=== PATIENT | female | born 1975 | race Caucasian/White ===

== ENCOUNTER 2023-01-21 09:59 | Outpatient (OUT) | payer BC, SELFPAY ==
--- NOTE | 2023-01-21 10:01 | VEIN_ITS ---
The [address] [address] Patient Name: EMIL DAVILA MRN: [id number] date: 1975 Sex: F Assigned Patient Location: Current Patient Location: Accession/Order Number: [id number] Exam Date: 01/21/2023 10:05 Report Date: 01/21/2023 11:11 At the request of: MILLY MONDRAGON Procedure: VC Endovenous Ablation 1VeinRT EXAMINATION: VC Endovenous Ablation 1VeinRT HISTORY: I83.813 pain due to varicose veins of bilateral legs The risks and benefits of the procedure had been previously discussed, and were rediscussed at length. Informed written consent was obtained. Vikram Ferrell RN; Diane Fulton RN; Denisse Camejo RDMS, RVT assisted. Time out procedure was performed. The right lower extremity was prepared and draped in the usual sterile fashion to allow knee flexion in the sterile field. Duplex ultrasound probe was draped in a sterile cover, sterile transmission gel was used. Venous mapping was performed with the areas of dilation and large tributaries marked. The total length was 25 cm from the entry distal thigh to 3 cm below the saphenofemoral junction. The diameter of the greater saphenous vein ranged from 8 mm. A 30 gauge needle and 1% buffered lidocaine was used to anesthetize the entry site. A 4 mm incision was made with a scalpel and the saphenous vein was entered percutaneously under direct ultrasound guidance with a micropuncture set, a single stick was successful in gaining access. A micro-guide wire was inserted and the needle removed. A micro-set including a dilator was inserted over the microwire and the needle and dilator were removed. A guide wire was inserted through the micro-set and guided through the saphenous vein to the saphenofemoral junction. The dilator was removed and an introducer sheath was inserted over the wire until the end of the sheath entered the saphenofemoral junction. The dilator and wire were removed and the 600 micron fiber was introduced and placed and positioned so that it extended beyond the sheath and was 3 cm distal to the saphenofemoral femoral junction. Final position of the fiber was determined by ultrasound guidance and duplex imaging. Tumescent anesthetic was delivered by ultrasound guidance. 100 cc of fluid was delivered along the entire course of the saphenous vein. The solution consisted of 1000 cc of normal saline with 40 mL of 1% lidocaine and 20 mL of sodium bicarbonate. A final positioning check was made. The energy source was turned on by means of the foot pedal and the fiber and sheath were withdrawn. The total number of Joules delivered was 1440. The laser was active for 180seconds under continuous pulse, average laser use of 8 J. Laser start time 11:00 AM, 01/21/2023. Laser stop time 11:03 AM, 01/21/2023. A duplex ultrasound revealed compressibility and flow at the saphenofemoral junction immediately after the procedure. Hemostasis at the access site was achieved. The skin incision of the saphenous vein was closed with a 4 x 4. A compression stocking was applied. Postop instructions were given. A follow up appointment was recommended and scheduled. The patient tolerated the procedure well. Electronically authenticated by: MARK TYSON Date: 01/21/2023 11:11
[2023-01-21] MEDS: LIDOCAINE HCL 10 ML, SODIUM BICARBONATE 1 MEQ INJ (10:59)
[2023-01-21] MEDS: 0.9 % SODIUM CHLORIDE 500 ML, LIDOCAINE HCL 20 ML, SODIUM BICARBONATE 10 MEQ INJ (11:00)
== END 2023-01-21 10:00 | disposition home or self-care (01) ==
LOC: VC 09:59
PROVIDERS: PCP Radiology Diagnostic Radiology; Visit Provider Radiology Diagnostic Radiology
DX: I83.813 Varicose veins of bilateral lower extremities with pain (principal)
CPT/HCPCS: 36478

== ENCOUNTER 2023-01-25 14:33 | Outpatient (OUT) | payer BC, SELFPAY ==
--- NOTE | 2023-01-25 14:34 | VEIN_ITS ---
Patient: EMIL DAVILA Exam Date: 01/25/2023 : 1975 Gender:F Ordering : DR ADONIS SOLITARIO M.D. Admission #: [id number] Family : Order #: [id number] CLICK HERE TO VIEW EXAM RADIOLOGY REPORT PROCEDURE: VC FACILITY EST LMTD VEIN CENTER - OFFICE VISIT FOLLOW UP COMPARISON: None. PROGRESS NOTES: The patient reports mild pain of the right leg following intravenous laser ablation patient did not require oral analgesics. The patient has worn her compression stocking. The patient has followed our recommendations to walk 20-30 minutes once or twice per day since the procedure. Physical exam demonstrates some mild bruising along the distal medial thigh measuring 2 cm in diameter likely related to tumescence injection. Thrombosed right great saphenous vein can be partially palpated. No areas of erythema or warmth to suggest cellulitis or thrombophlebitis. No active ulceration Review of the ultrasound performed the same day demonstrates occlusive thrombus extending throughout the treated right great saphenous vein with heat induced thrombus 2.0 cm from the saphenofemoral junction. The patient expressed a desire to proceed with treatment of bilateral reticular and spider veins. VEIN/ Facility EST LMTD IMPRESSION: 1. Successful ablation of the right great saphenous vein 2. Persistent bilateral reticular and spider veins. PLAN: Injection sclerotherapy Nurse notes, history and physical were reviewed and confirmed, see attached forms. The nurse was present throughout the physical exam and consultation Dictated by: Adonis Solitario MD on 01/25/2023 at 16:00 Approved by: Adonis Solitario MD on 01/25/2023 at 16:02
--- NOTE | 2023-01-25 14:34 | VEIN_ITS ---
Patient: EMIL DAVILA Exam Date: 01/25/2023 : 1975 Gender:F Ordering : DR ADONIS SOLITARIO M.D. Admission #: [id number] Family : Order #: [id number] CLICK HERE TO VIEW EXAM RADIOLOGY REPORT PROCEDURE: VC EXT VENOUS RT LMTD COMPARISON: None. INDICATIONS: I80.01 Phlebitis of superficial veins of rt lower extremity TECHNIQUE: Lower extremity lucas scale and Duplex Doppler evaluation of the deep venous system from the inguinal ligament through the calf veins. FINDINGS: REGION: Right lower extremity. THROMBI: Negative for DVT. Heat induced thrombus visualized 2.0 cm from the SFJ. The heat induced thrombus extends from groin to distal thigh. COMPRESSIBILITY: Non-compressible segments. FLOW: Areas of no flow. CONCLUSION: Post ablation occlusion of the right great saphenous vein with heat induced thrombus 2 cm from the saphenofemoral junction Dictated by: Adonis Solitario MD on 01/25/2023 at 14:58 Approved by: Adonis Solitario MD on 01/25/2023 at 14:58
== END 2023-01-25 14:34 | disposition home or self-care (01) ==
LOC: VC 14:33
PROVIDERS: PCP Radiology Diagnostic Radiology; Visit Provider Radiology Diagnostic Radiology
DX: I80.01 Phlebitis and thrombophlebitis of superficial vessels of right lower extremity (principal)
CPT/HCPCS: 93971; G0463

== ENCOUNTER 2023-01-28 11:03 | Outpatient (OUT) | payer BC, SELFPAY ==
--- NOTE | 2023-01-28 | VEIN_ITS ---
[address] [address] Patient Name: EMIL DAVILA MRN: [id number] date: 1975 Sex: F Assigned Patient Location: Current Patient Location: Accession/Order Number: [id number] Exam Date: 01/28/2023 11:00 Report Date: 01/28/2023 13:33 At the request of: MILLY MONDRAGON Procedure: VC INJ Sclerosing SOLMULT Vein EXAMINATION: VC INJ Sclerosing SOLMULT Vein HISTORY: Pain due to varicose veins of bilateral legs I83.813 COMPARISON: No relevant comparison available. TECHNIQUE: The risks and benefits of the procedure were explained at length to the patient and informed written consent was obtained. Vikram Ferrell was present and assisted. The procedure was performed under sterile technique. The patient's leg was wrapped with Coban and postprocedural verbal and written instructions provided. SCLEROSANT: 4 cc, 0.5% polidocanol VEIN(S) INJECTED: 23 veins in the left leg VISUALIZATION: Ultrasound was not used to visualize the sclerosant ANESTHESIA: Supercooled air COMPLICATIONS: None VEIN/VC INJ Sclerosing SOLMULT Vein IMPRESSION: Technically successful sclerotherapy as described Electronically authenticated by: MILLY MONDRAGON Date: 01/28/2023 13:33
== END 2023-01-28 11:04 | disposition home or self-care (01) ==
LOC: VC 11:03
PROVIDERS: PCP Radiology Diagnostic Radiology; Visit Provider Radiology Diagnostic Radiology
DX: I83.813 Varicose veins of bilateral lower extremities with pain (principal)
CPT/HCPCS: 36471

== ENCOUNTER 2023-02-03 09:09 | Outpatient (OUT) | payer BC, SELFPAY ==
--- NOTE | 2023-02-03 | VEIN_ITS ---
[address] [address] Patient Name: EMIL DAVILA MRN: [id number] date: 1975 Sex: F Assigned Patient Location: Current Patient Location: Accession/Order Number: [id number] Exam Date: 02/03/2023 09:05 Report Date: 02/03/2023 09:59 At the request of: MILLY MONDRAGON Procedure: VC INJ Sclerosing SOLMULT Vein EXAMINATION: VC INJ Sclerosing SOLMULT Vein HISTORY: Pain due to varicose veins of bilateral legs I83.813 COMPARISON: No relevant comparison available. TECHNIQUE: The risks and benefits of the procedure were explained at length to the patient and informed written consent was obtained. Vikram Ferrell was present and assisted. The procedure was performed under sterile technique. The patient's leg was wrapped with Coban and postprocedural verbal and written instructions provided. SCLEROSANT: 4 cc, 0.5% polidocanol VEIN(S) INJECTED: 21 veins in the right leg VISUALIZATION: Ultrasound was not used to visualize the sclerosant ANESTHESIA: Supercooled air COMPLICATIONS: None VEIN/VC INJ Sclerosing SOLMULT Vein IMPRESSION: Technically successful sclerotherapy as described Electronically authenticated by: MILLY MONDRAGON Date: 02/03/2023 09:59
== END 2023-02-03 09:10 | disposition home or self-care (01) ==
LOC: VC 09:09
PROVIDERS: PCP Radiology Diagnostic Radiology; Visit Provider Radiology Diagnostic Radiology
DX: I83.813 Varicose veins of bilateral lower extremities with pain (principal)
CPT/HCPCS: 36471